=== PATIENT | male | born 1935 | race Caucasian/White ===

== ENCOUNTER 2022-02-14 19:19 | Observation (INO) | payer MEDICARE, BC ==
[2022-02-14 20:42] LABS: SARS-CoV-2 NAA Rapid Test Not Detected (NotDetected)
[2022-02-14 21:05] LABS: #Basophils 0.1 10x3/uL (0.0-0.2); #Eosinphils 0.2 10x3/uL (0.0-0.5); #Monocytes 0.5 10x3/uL (0.0-1.1); #Neutrophils 5.1 10x3/uL (1.5-8.4); %Basophils 1.1 % (0.0-2.0); %Eosinophils 2.4 % (0.0-6.0); %Lymphocytes 21.9 % (18.0-47.0); %Monocytes 6.6 % (0.0-10.0); %Neutrophils 67.7 % (40.0-75.0); Hemoglobin 14.1 g/dL (13.5-17.5); Mean Corpuscular Hemoglobin 32.7 pg (27.0-33.0); Mean Corpuscular Volume 96.3 fl (81.2-95.1); Mean Platelet Volume 10.4 fl (7.4-10.4); Platelet Count 213 10x3/uL (150-450); RBC Distribution Width 12.8 % (11.5-14.5); Red Blood Cell (RBC) Count 4.31 10x6/uL (4.32-5.72); White Blood Cell (WBC) Count 7.6 10x3/uL (3.5-10.5)
[2022-02-14 21:26] LABS: Anion Gap 16 mmol/L (10-20); BUN (Urea Nitrogen) 21 mg/dL (8.4-25.7); Calc. Creatinine Clearance 0 mL/min (70-130); Carbon Dioxide 24 mmol/L (23-31); Chloride 103 mmol/L (98-107); Potassium 3.8 mmol/L (3.5-5.1); Sodium 139 mmol/L (136-145)
[2022-02-14 21:27] LABS: ALT (SGPT) 19 U/L (8-55); AST (SGOT) 21 U/L (5-34); Albumin 4.1 g/dL (3.4-4.8); Alkaline Phosphatase 44 U/L (40-110); Bilirubin, Total 0.7 mg/dL (0.2-1.2); Calcium 9.3 mg/dL (7.8-10.44); Estimated GFR 52; Globulin 3.1 g/dL (2.4-3.5); Glucose 163 mg/dL (83-110); Protein, Total 7.2 g/dL (5.8-8.1)
[2022-02-15 00:42] VITALS: BMI 31.2
[2022-02-15] MEDS ORDERED: Acetaminophen 325 MG TAB PO PRN (01:27)
[2022-02-15] MEDS ORDERED: Calcium Carbonate 500 MG ChewTAB PO PRN (01:27)
[2022-02-15] MEDS ORDERED: Senokot S 8.6-50 MG TAB PO PRN (01:27)
[2022-02-15] MEDS ORDERED: Guaifenesin DM 100-10/5 ML UDCUP PO PRN (01:27)
[2022-02-15] MEDS ORDERED: Ondansetron PF 4 MG/2 ML Vial IVP PRN (01:27)
[2022-02-15 04:38] LABS: Anion Gap 13 mmol/L (10-20); BUN (Urea Nitrogen) 20 mg/dL (8.4-25.7); Calc. Creatinine Clearance 70 mL/min (70-130); Calcium 8.5 mg/dL (7.8-10.44); Carbon Dioxide 26 mmol/L (23-31); Cardiac Risk 4.1 (Less than 4.5); Chloride 106 mmol/L (98-107); Cholesterol 145 mg/dl (< 200 Desired); Estimated GFR 60; Glucose 105 mg/dL (83-110); HDL Cholesterol 35 mg/dL (>60 Neg Risk); LDL Cholesterol, Calculated 94 mg/dL; Potassium 3.9 mmol/L (3.5-5.1); Sodium 141 mmol/L (136-145); Triglycerides 79 mg/dL (Less than 150)
[2022-02-15] MEDS: Levothyroxine Sodium 50 MCG TAB PO SCH (05:06)
[2022-02-15] MEDS ORDERED: Enoxaparin Sodium 40 MG/0.4 ML SYRINGE SC SCH ×2 (09:00→21:00)
[2022-02-15] MEDS ORDERED: Lisinopril 20 MG TAB PO SCH (09:00)
[2022-02-15] MEDS: Aspirin 81 mg Enteric Coated Tablet PO SCH (10:29)
[2022-02-15] MEDS: Clopidogrel Bisulfate 75 MG TAB PO SCH (10:30)
[2022-02-15] MEDS: Finasteride 5 MG TAB PO SCH (10:30)
[2022-02-15 12:27] LABS: Hemoglobin A1c 5.9 % (4.0-6.0)
[2022-02-15] MEDS ORDERED: Rosuvastatin 20 MG TAB PO SCH (21:00)
[2022-02-15] MEDS ORDERED: Tamsulosin HCl 0.4 MG CAP PO SCH (21:00)
[2022-02-15] MEDS ORDERED: Montelukast Sodium 10 mg Tablet PO SCH (21:00)
[2022-02-15] MEDS ORDERED: Atorvastatin Calcium 40 MG TAB PO SCH (21:00)
[2022-02-16] MEDS: Levothyroxine Sodium 50 MCG TAB PO SCH (05:30)
[2022-02-16 05:42] VITALS: TEMP 97.9
[2022-02-16 08:33] VITALS: BP 141/71
[2022-02-16] MEDS: Clopidogrel Bisulfate 75 MG TAB PO SCH (11:00)
[2022-02-16] MEDS: Aspirin 81 mg Enteric Coated Tablet PO SCH (11:00)
[2022-02-16] MEDS: Finasteride 5 MG TAB PO SCH (11:00)
== END 2022-02-16 11:25 | disposition home or self-care (01) ==
LOC: CSHERS 19:19 → CSHTELE 02-15 00:21
PROVIDERS: ADMIT Internal Medicine; ATTEND Internal Medicine
DX: R26.89 Other abnormalities of gait and mobility (principal); R20.0 Anesthesia of skin; I12.9 Hypertensive chronic kidney disease with stage 1 through stage 4 chronic kidney disease, or unspecified chronic kidney disease; N18.9 Chronic kidney disease, unspecified; E78.5 Hyperlipidemia, unspecified; E03.9 Hypothyroidism, unspecified; N40.0 Benign prostatic hyperplasia without lower urinary tract symptoms; I08.3 Combined rheumatic disorders of mitral, aortic and tricuspid valves; Z86.73 Personal history of transient ischemic attack (TIA), and cerebral infarction without residual deficits; Z79.02 Long term (current) use of antithrombotics/antiplatelets; Z79.82 Long term (current) use of aspirin; Z79.890 Hormone replacement therapy; Z79.899 Other long term (current) drug therapy; Z88.0 Allergy status to penicillin; Z20.822 Contact with and (suspected) exposure to COVID-19
CPT/HCPCS: 70450; 70551; 80048; 80053; 80061; 82962; 83036; 83735; 85025; 93005; 93306; 93880; 97116; 99285; U0002; 36415; 36416; 93010; 96372; G0378; J1650